=== PATIENT | female | born 1950 | race Two or more races ===

== ENCOUNTER 2022-08-30 12:17 | Outpatient (CLI) | payer OTHER | END 2022-08-30 12:29 | disposition home or self-care (01) | LOC: MRI 12:17 | PROVIDERS: ATTEND Physical Medicine & Rehabilitation | DX: M43.17 Spondylolisthesis, lumbosacral region (principal) | CPT/HCPCS: 72148 ==

== ENCOUNTER 2023-12-11 10:43 | Outpatient (CLI) | payer OTHER | END 2023-12-11 10:55 | disposition home or self-care (01) | LOC: RAD 10:43 | PROVIDERS: ATTEND Specialist | DX: M25.512 Pain in left shoulder (principal); I10 Essential (primary) hypertension | CPT/HCPCS: 73218 ==

== ENCOUNTER 2024-06-16 13:20 | Outpatient (CLI) | payer OTHER | END 2024-06-16 13:28 | disposition home or self-care (01) | LOC: MRI 13:20 | PROVIDERS: ATTEND Orthopaedic Surgery Sports Medicine | DX: M75.122 Complete rotator cuff tear or rupture of left shoulder, not specified as traumatic (principal) | CPT/HCPCS: 73221 ==